=== PATIENT | female | born 1945 | race Caucasian/White ===

== ENCOUNTER 2021-11-26 06:01 | Observation (INO) ==
[~2021-11-26 06:01] MED LIST: Buffered Lidocaine 1% SYRIN 1 ml INTRADERM ONE; Lactated Ringers 1000 ml BAG 1,000 ML IV SCH
[2021-11-26] MEDS ORDERED: ceFAZolin 2 GM PREMIX 2 GM/50 ML BAG ONE (06:39)
[2021-11-26] MEDS ORDERED: Lidocaine 1% MPF 5 ML VIAL ONE (07:06)
[2021-11-26] MEDS ORDERED: ROPIVACAINE 5 MG/ML 30 ML BTL (0.5%) ONE ×2 (07:06→07:18)
[2021-11-26] MEDS ORDERED: Midazolam 2 mg/2 ml VIAL 1 mg/ml 2 ml VIAL (2 mg) ONE ×2 (07:16→07:24)
[2021-11-26] MEDS ORDERED: Ropivacaine 5 MG/ML 20 ML VIAL 0.5% (100 MG) ONE (07:17)
[2021-11-26] MEDS ORDERED: Lidocaine 2% PF 5 ML VIAL ONE (07:24)
[2021-11-26] MEDS ORDERED: fentaNYL 100 mcg/2 ml 50 MCG/ML VIAL ONE (07:25)
[2021-11-26] MEDS ORDERED: Phenylephrine IV 10 MG/ML 1 ml VIAL ONE (07:54)
[2021-11-26] MEDS ORDERED: Dexamethasone IV 4 MG/ML VIAL 1 ml VIAL ONE (08:42)
[2021-11-26] MEDS ORDERED: Ondansetron 4 mg VIAL 2 MG/ML 2 ml VIAL ONE (08:42)
[2021-11-26] MEDS ORDERED: HYDROmorphone 1 MG/1 ML SYRINGE IV PRN (08:46)
[2021-11-26] MEDS ORDERED: Naloxone 0.4 mg VIAL 0.4 mg/ml 1 ml VIAL IV PRN (08:46)
[2021-11-26] MEDS ORDERED: Ondansetron 4 mg VIAL 2 MG/ML 2 ml VIAL IV PRN (08:49)
[2021-11-26] MEDS ORDERED: Magnesium Hydroxide LIQ 30 ML UDC PO PRN (08:49)
[2021-11-26] MEDS ORDERED: Lactulose 30 ml UDC PO PRN (08:49)
[2021-11-26] MEDS ORDERED: Ondansetron ODT 4 mg TAB 4 MG TAB PO PRN (08:49)
[2021-11-26] MEDS ORDERED: Propofol 10 MG/ML 20 ML BTL ONE (09:21)
[2021-11-26] MEDS: Lactated Ringers 1000 ml BAG 1,000 ML IV SCH ×2 (12:45→22:57)
[2021-11-26] MEDS: Vitamin THERAPEUTIC TAB PO SCH (13:17)
[2021-11-26] MEDS: Magnesium Hydroxide LIQ 30 ML UDC PO SCH ×2 (13:18→21:21)
[2021-11-26] MEDS: Morphine 2 MG/ML SYRINGE IV PRN ×2 (13:18→21:13)
[2021-11-26] MEDS: ceFAZolin 1 GM ADVAN 1 GM in NS 0.9% 50 ML 50 ML IVPB SCH ×2 (16:08→22:59)
[2021-11-27 06:52] LABS: Hematocrit 30 % (35-47); Hemoglobin 10.6 g/dL (12.0-16.0); Mean Platelet Volume 7.1 fL (7.4-10.4); Platelet Count 186 10^3/uL (150-450)
[2021-11-27 07:11] LABS: Calcium 8.5 mg/dL (8.6-10.3); Potassium 4.2 mmol/L (3.5-5.0); eGFR CKD-EPI 90.6 (>60)
[2021-11-27] MEDS: Vitamin THERAPEUTIC TAB PO SCH (07:40)
[2021-11-27] MEDS: Magnesium Hydroxide LIQ 30 ML UDC PO SCH (07:41)
[2021-11-27] MEDS: ceFAZolin 1 GM ADVAN 1 GM in NS 0.9% 50 ML 50 ML IVPB SCH (08:40)
[2021-11-27 11:26] VITALS: BP 128/66
== END 2021-11-27 14:00 | disposition home or self-care (01) ==
LOC: SSU 06:01 → OR 06:01 → EDSTATUS 07:30
PROVIDERS: ADMIT Orthopaedic Surgery Adult Reconstructive Orthopaedic Surgery; ATTEND Orthopaedic Surgery Adult Reconstructive Orthopaedic Surgery